=== PATIENT | male | born 1955 | race Two or more races ===

== ENCOUNTER 2021-04-29 11:15 | Inpatient (IN) | payer OTHER ==
[~2021-04-29] VITALS: Ht 180.3 cm; Wt 113.4 kg
[2021-04-29] MEDS ORDERED: METFORMIN HCL1000 M2 PO (13:27)
[2021-04-29] MEDS ORDERED: ECOTRIN81 MG PO (13:28)
[2021-04-29] MEDS ORDERED: TOPROL XL100 M1 PO (13:28)
[2021-04-29] MEDS ORDERED: GLIMEPIRIDE4 M1 PO (13:28)
[2021-04-29] MEDS ORDERED: BRILINTA60 MG PO (13:29)
[2021-04-29] MEDS ORDERED: LIPITOR20 MG PO (13:29)
[2021-04-29] MEDS ORDERED: SYMBICORT 16010.2 GM IH (13:30)
[2021-05-04] MEDS ORDERED: OXYC1TAB9 PO (11:42)
[2021-05-04] MEDS ORDERED: POLY119PG PO (11:42)
[2021-05-04] MEDS ORDERED: INTEGRA PLUS C1 EACH PO (12:30)
== END 2021-05-04 14:41 | disposition home or self-care (01) | DRG 376 ==
LOC: SURH 05-01 05:49 → EDBD 05-01 05:49 → O/R 05-01 05:49 → SURH 05-01 11:15
PROVIDERS: ADMIT Surgery; ATTEND Surgery
PROC: 4A12X4Z Monitoring of Cardiac Electrical Activity, External Approach (ICD-10-PCS; 2021-05-01)
PROC: 0DBP8ZZ Excision of Rectum, Via Natural or Artificial Opening Endoscopic (ICD-10-PCS; principal; 2021-05-01 14:30)
PROC: 30233N1 Transfusion of Nonautologous Red Blood Cells into Peripheral Vein, Percutaneous Approach (ICD-10-PCS; 2021-05-03)
DX: C20 Malignant neoplasm of rectum (principal); D64.9 Anemia, unspecified; I11.9 Hypertensive heart disease without heart failure; I49.9 Cardiac arrhythmia, unspecified; I25.10 Atherosclerotic heart disease of native coronary artery without angina pectoris; D12.8 Benign neoplasm of rectum; R19.5 Other fecal abnormalities; E11.9 Type 2 diabetes mellitus without complications; E78.5 Hyperlipidemia, unspecified; Z95.0 Presence of cardiac pacemaker; Z79.84 Long term (current) use of oral hypoglycemic drugs

== ENCOUNTER 2023-08-13 13:30 | Inpatient (IN) | payer OTHER ==
[~2023-08-13] VITALS: Ht 180.3 cm; Wt 95.3 kg
[~2023-08-13 13:30] MED LIST: BRILINTA60 MG PO; ECOTRIN81 MG PO; GLIMEPIRIDE4 M1 PO; INTEGRA PLUS C1 EACH PO; LIPITOR20 MG PO; METFORMIN HCL1000 M2 PO; OXYC1TAB9 PO; POLY119PG PO; SYMBICORT 16010.2 GM IH; TOPROL XL100 M1 PO
[2023-08-13] MEDS ORDERED: PROTONIX40 M1 (14:38)
[2023-08-13] MEDS ORDERED: SINGULAIR 5MG5 MG (14:38)
[2023-09-06] MEDS ORDERED: CEFTRIAXONE SODIUM 2,000 MG VIAL ONE (12:27)
[2023-09-06] MEDS ORDERED: METRONIDAZOLE/SODIUM CHLORIDE 500 MG/100 ML PIGGYBACK IV ONE ×2 (12:27→14:30)
[2023-09-06] MEDS ORDERED: POVIDONE-IODINE 118 ML BOTT TOP ONE (13:15)
[2023-09-06] MEDS ORDERED: MORPHINE SULFATE 4 MG/ML CARTRIDGE IV PRN (13:30)
[2023-09-06] MEDS ORDERED: 0.9 % SODIUM CHLORIDE 1,000 ML IV SCH (13:30)
[2023-09-06] MEDS ORDERED: OxyCODONE HCL 5 MG TABLET (ROXICODONE) PO PRN (13:30)
[2023-09-06] MEDS ORDERED: ONDANSETRON HCL 2 MG/ML VIAL IV PRN (13:30)
[2023-09-06] MEDS ORDERED: DEXTROSE 50 % IN WATER 0.5 G/ML DISP.SYRIN IV PRN (13:30)
[2023-09-06] MEDS ORDERED: ACETAMINOPHEN 500 MG GEL..CAP PO SCH (14:00)
[2023-09-06] MEDS ORDERED: CEFTRIAXONE SODIUM 2,000 MG VIAL IV ONE (14:30)
[2023-09-06] MEDS ORDERED: INSULIN LISPRO 1,000 UNIT/10 ML UNITS SUBCUTANEO SCH (16:00)
[2023-09-06] MEDS ORDERED: FUROSEMIDE40 MG (16:18)
[2023-09-06] MEDS ORDERED: ALPRAZOLAM2 MG (16:18)
[2023-09-06] MEDS ORDERED: VENLAFAXINE HC150 MG (16:18)
[2023-09-06] MEDS ORDERED: VITAMIN D310 MC5 (16:19)
[2023-09-06] MEDS ORDERED: DULOXETINE HCL30 MG (16:19)
[2023-09-06] MEDS ORDERED: HYOSCYAMINE SULFATE 0.125 MG TAB.SUBL SL SCH (17:00)
[2023-09-06] MEDS ORDERED: GABAPENTIN 300 MG CAPSULE PO SCH (17:00)
[2023-09-06] MEDS ORDERED: CHLORHEXIDINE GLUCONATE 120 ML BOTTLE TOP ONE ×2 (17:27→18:00)
[2023-09-06] MEDS ORDERED: SUGAMMADEX SODIUM 200 MG/2 ML VIAL IV ONE ×2 (18:24→18:45)
[2023-09-06] MEDS ORDERED: FAMOTIDINE/PF 20 MG/2 ML VIAL IV PUSH SCH (21:00)
[2023-09-06] MEDS ORDERED: ONDANSETRON HCL 2 MG/ML VIAL ONE (21:02)
[2023-09-06 21:49] LABS: HEMATOCRIT 37.2 % (39.0-48.0); HEMOGLOBIN 12.3 g/dL (13-16.00); MEAN CELL VOLUME 83.7 fL (80.0-100.00); MEAN CORPUSCULAR HEMOGLOBIN 27.6 pg (27.00-32.0); PLATELET COUNT 138 K/uL (150-450); RED BLOOD COUNT 4.45 M/uL (4.00-6.00); RED CELL DISTRIBUTION WIDTH 17.2 % (11.5-14.5)
[2023-09-06] MEDS ORDERED: FAMOTIDINE/PF 20 MG/2 ML VIAL ONE (21:49)
[2023-09-06 22:06] LABS: ALBUMIN 3.6 gm/dL (3.4-5.0); CALCIUM 8.9 mg/dL (8.5-10.1); CREATININE SERUM 0.77 mg/dL (0.70-1.30); GFR 101.08; MAGNESIUM 1.6 mg/dL (1.8-2.4); PHOSPHOROUS 3.5 mg/dL (2.5-4.9); POTASSIUM 3.37 mEq/L (3.5-5.1)
[2023-09-07] MEDS ORDERED: TAMSULOSIN HCL 0.4 MG CAP PO STA (07:25)
[2023-09-07 07:33] LABS: HEMATOCRIT 32.7 % (39.0-48.0); HEMOGLOBIN 10.9 g/dL (13-16.00); MEAN CELL VOLUME 82.1 fL (80.0-100.00); MEAN CORPUSCULAR HEMOGLOBIN 27.3 pg (27.00-32.0); MEAN CORPUSCULAR HGB CONC 33.2 g/dl (32.0-36.0); PLATELET COUNT 160 K/uL (150-450); RED BLOOD COUNT 3.98 M/uL (4.00-6.00); RED CELL DISTRIBUTION WIDTH 17.1 % (11.5-14.5)
[2023-09-07 08:05] LABS: ALBUMIN 3.1 gm/dL (3.4-5.0); CALCIUM 8.4 mg/dL (8.5-10.1); CREATININE SERUM 0.74 mg/dL (0.70-1.30); GFR 105.82; MAGNESIUM 1.5 mg/dL (1.8-2.4); PHOSPHOROUS 3.5 mg/dL (2.5-4.9); POTASSIUM 3.28 mEq/L (3.5-5.1)
[2023-09-07] MEDS ORDERED: METOPROLOL TARTRATE 100 MG TABLET PO SCH (09:00)
[2023-09-07] MEDS ORDERED: ENOXAPARIN SODIUM 40 MG/0.4 ML SYRINGE SUBCUTANEO SCH (17:00)
[2023-09-07] MEDS ORDERED: POTASSIUM CHLORIDE IN WATER 40 MEQ/100 ML PIGGYBAG IV ONE (22:15)
[2023-09-07] MEDS ORDERED: MAGNESIUM SULFATE IN WATER 4GM/50ML PIGGYBAG IV ONE (22:15)
[2023-09-08 05:33] LABS: CALCIUM 8.2 mg/dL (8.5-10.1); CREATININE SERUM 0.54 mg/dL (0.70-1.30); GFR 152.23; POTASSIUM 3.11 mEq/L (3.5-5.1)
[2023-09-08] MEDS ORDERED: POTASSIUM CHLORIDE IN WATER 100 ML IV ONE ×2 (07:45→15:30)
[2023-09-08] MEDS ORDERED: ENOXAPARIN SODIUM 40 MG/0.4 ML SYRINGE SUBCUTANEO SCH (09:00)
[2023-09-08] MEDS ORDERED: CHLORHEXIDINE GLUCONATE 120 ML BOTTLE TOP SCH (09:00)
[2023-09-08] MEDS ORDERED: TAMSULOSIN HCL 0.4 MG CAP PO SCH (09:00)
[2023-09-09 11:14] LABS: CALCIUM 8.5 mg/dL (8.5-10.1); CREATININE SERUM 0.63 mg/dL (0.70-1.30); GFR 127.42; POTASSIUM 3.39 mEq/L (3.5-5.1)
[2023-09-09] MEDS ORDERED: PERCOCET 5-3251 EACH PO (12:31)
[2023-09-09] MEDS ORDERED: PEPCID AC20 MG PO (12:31)
== END 2023-09-09 17:47 | disposition home or self-care (01) | DRG 331 ==
LOC: EDSTATUS 13:30 → ADM 13:30 → SURH 08-23 13:30 → O/R 09-06 07:27 → SURG 09-06 21:06
PROVIDERS: Colon & Rectal Surgery; ADMIT Surgery; ATTEND Surgery
PROC: 0DTP4ZZ Resection of Rectum, Percutaneous Endoscopic Approach (ICD-10-PCS; 2023-09-06)
PROC: 0DTN4ZZ Resection of Sigmoid Colon, Percutaneous Endoscopic Approach (ICD-10-PCS; 2023-09-06)
PROC: 0DBQ4ZZ Excision of Anus, Percutaneous Endoscopic Approach (ICD-10-PCS; 2023-09-06)
PROC: 07BC4ZZ Excision of Pelvis Lymphatic, Percutaneous Endoscopic Approach (ICD-10-PCS; 2023-09-06)
PROC: 0D1N4Z4 Bypass Sigmoid Colon to Cutaneous, Percutaneous Endoscopic Approach (ICD-10-PCS; principal; 2023-09-06 12:45)
DX: C20 Malignant neoplasm of rectum (principal); Z20.822 Contact with and (suspected) exposure to COVID-19